=== PATIENT | female | born 1975 | race Two or more races ===

== ENCOUNTER 2017-05-11 08:19 | Emergency (ER) | payer BC, OTHER ==
[~2017-05-11] VITALS: Ht 165.1 cm; Wt 104.3 kg
[2017-05-11 10:00] LABS: Basophils # (auto) 0 uL; Basophils % (auto) 0.3 % (0.0-2.0); CONDITION Y; Eosinophils # (auto) 0.1 uL; Eosinophils % (auto) 0.6 % (0.0-7.0); Hematocrit 42.1 % (36.0-46.0); Hemoglobin 14.5 g/dL (12.2-16.2); Lymphocytes # (auto) 1.4 uL; Lymphocytes % (auto) 15.2 % (10.0-50.0); Mean Corpuscular Hemoglobin 30.4 pg (28.0-32.0); Mean Corpuscular Hgb Conc. 34.5 g/dL (32.0-36.0); Mean Corpuscular Volume 88.2 fL (80.0-100.0); Mean Platelet Volume 9.7 fL (6.9-10.8); Monocytes # (auto) 0.6 uL; Monocytes % (auto) 7.1 % (0.0-12.0); Neutrophils # (auto) 6.9 uL; Neutrophils % (auto) 76.8 % (37.0-80.0); Platelet Count (auto) 268 10^3/uL (140-450); Red Cell Distribution Width 12.8 % (11.8-14.3)
[2017-05-11 10:22] LABS: Albumin 3.4 g/dL (3.4-5.0); Alkaline Phosphatase 68 U/L (45-117); Anion Gap 9 (5-15); Aspartate Aminotransferase 13 U/L (15-37); BUN/Creatinine Ratio 13.4; Bilirubin, Total 0.3 mg/dL (0.2-1.0); Blood Urea Nitrogen 11 mg/dL (7-18); Calcium 8.5 mg/dL (8.5-10.1); Carbon Dioxide 23 mmol/L (21-32); Chloride 107 mmol/L (98-107); GFR African American 98 mL/min; GFR Non-African American 81 mL/min; Glucose 133 mg/dL (74-106); Potassium 3.7 mmol/L (3.5-5.1); Sodium 139 mmol/L (136-145); Total Protein 7.2 g/dL (6.4-8.2)
[2017-05-11] MEDS ORDERED: ASPirin 81 mg TAB PO ONE (10:30)
[2017-05-11] MEDS ORDERED: ASPirin 81 mg TAB ONE (10:32)
[2017-05-11] MEDS ORDERED: IOHEXOL 350 MG/ML 100ML IJ ONE (10:37)
[2017-05-11] MEDS ORDERED: SODIUM CHLORIDE 0.9% 1,000 ML IV ONE ×2 (10:45→12:00)
[2017-05-11 11:32] LABS: INR 0.98 (0.9-1.15); Partial Thromboplastin Time 24.5 sec (22.64-33.71); Prothrombin Time 10.7 sec (9.37-12.3)
[2017-05-11] MEDS ORDERED: MECLIZINE HCL 25 MG TAB PO ONE (12:45)
[2017-05-11 14:21] LABS: Urine Bilirubin Negative (Negative); Urine Blood 2+ /uL (Negative); Urine Color Yellow (Yellow); Urine Glucose Normal (Normal); Urine Ketone Negative (Negative); Urine Nitrite Negative (Negative); Urine RBC 36 /hpf (0 - 4); Urine Squamous Epithelial Cell FEW /hpf (<5); Urine Urobilinogen Normal (Negative)
[2017-05-11 14:40] VITALS: BP 122/98
[2017-05-11] MEDS ORDERED: ATORVASTATIN 20 MG TAB PO ONE (22:00)
[2017-05-12] MEDS ORDERED: ASPirin-EC 81 mg tab PO ONE (10:00)
== END 2017-05-11 14:45 | disposition short-term general hospital (02) ==
LOC: EDBD 08:19 → ER 08:19
DX: G51.0 Bell's palsy (principal)
CPT/HCPCS: 36415; 70450; 70496; 70498; 80053; 80061; 80307; 81001; 83036; 83735; 84443; 84484; 84702; 85025; 85610; 85730; 86141; 94761; 96360; 96361; 99285; J7030; J8597; Q9967